=== PATIENT | female | born 1955 | race Asian ===

== ENCOUNTER 2023-05-22 12:54 | Emergency (ER) | payer MEDICAID ==
[~2023-05-22] VITALS: Ht 157.5 cm; Wt 52.2 kg
[2023-05-22 13:06] VITALS: BP_SYST 110; PULSE 82; RESP 16; TEMP 97.4; O2SAT 98
[2023-05-22 14:01] LABS: BASOPHILS % (AUTO) 0.3 % (0.0-2.0); EOSINOPHILS % (AUTO) 0.5 % (0.0-4.0); HEMATOCRIT 35.4 % (36-48); HEMOGLOBIN 11.5 g/dL (12.0-16.0); LYMPHOCYTES # (AUTO) 1.7 K/uL (1.0-5.5); LYMPHOCYTES % (AUTO) 17.5 % (20.5-51.5); MEAN CORPUSCULAR HEMOGLOBIN 19 pg (27-31); MEAN CORPUSCULAR HGB CONC 33 % (32-36); MEAN CORPUSCULAR VOLUME 58 fL (79.0-98.0); MONOCYTES # (AUTO) 0.7 K/uL (0.0-1.0); MONOCYTES % (AUTO) 7.4 % (1.7-9.3); NEUTROPHILS # (AUTO) 7.4 K/uL (1.8-7.7); NEUTROPHILS % (AUTO) 74.3 % (40.0-70.0); PLATELET COUNT (AUTO) 294 K/uL (130-430); RED BLOOD CELL COUNT(AUTO) 6.13 MIL/uL (4.2-6.2); RED CELL DISTRIBUTION WIDTH 13.7 % (9.0-15.0)
[2023-05-22 14:11] LABS: ANION GAP 9 (5-15); CARBON DIOXIDE 30 mmol/L (23-29); CHLORIDE 95 mmol/L (98-107); CREATININE 1.34 mg/dL (0.55-1.30); GFR AFRICAN AMERICAN 51 mL/min (>90); GLUCOSE 103 mg/dL (74-106); POTASSIUM 3.7 mmol/L (3.5-5.1); SODIUM SERUM 134 mmol/L (136-145); UREA NITROGEN, BLOOD 31 mg/dL (8-21)
[2023-05-22 14:12] LABS: GFR NON AFRICAN-AMERICAN 42 mL/min (>90)
[2023-05-22 14:24] LABS: ALANINE AMINOTRANSFERASE 7 U/L (12-78); ALBUMIN 3.5 g/dL (3.4-4.8); ASPARTATE AMINOTRANSFERASE 10 U/L (10-37); BILIRUBIN,DIRECT 0.3 mg/dL (0.0-0.3); CREATINE KINASE, TOTAL 31 U/L (26-192); FREE T4 (FREE THYROXINE) 1.5 ng/dL (0.6-1.6); LIPASE 76 U/L (16-77); THYROID STIMULATING HORMONE 0.94 uIu/mL (0.34-4.82); TOTAL BILIRUBIN 0.8 mg/dL (0.0-1.0)
[2023-05-22 14:29] LABS: OVALOCYTES FEW; TARGET CELLS FEW; TEAR DROP CELLS FEW
[2023-05-22] MEDS: NACL 0.9% 1,000 ML IV ONE (14:51)
[2023-05-22] MEDS ORDERED: HYDR25TA4 PO (14:54)
[2023-05-22] MEDS ORDERED: METF-380 PO (14:54)
[2023-05-22] MEDS ORDERED: LOSA-412 PO (14:54)
[2023-05-22] MEDS ORDERED: ASA81 PO (14:54)
[2023-05-22] MEDS ORDERED: NOR10 PO (14:54)
[2023-05-22] MEDS ORDERED: LIP80 PO (14:54)
[2023-05-22 17:08] LABS: BILIRUBIN,URINE NEGATIVE (NEGATIVE); BLOOD, URINE 1+ (NEGATIVE); CLARITY/URINE CLEAR (CLEAR); COLOR,URINE YELLOW (YELLOW); GLUCOSE,URINE NEGATIVE (NEGATIVE); KETONES,URINE NEGATIVE (NEGATIVE); LEUKOCYTE ESTERASE ,URINE 3+ (NEGATIVE); NITRITE, URINE NEGATIVE (NEGATIVE); PH,URINE 7.5 (5.0-8.0); PROTEIN URINE 2+ (NEGATIVE); UROBILINOGEN,URINE 0.2 (0.2-1.0)
[2023-05-22 17:17] LABS: BACTERIA,URINE MANY /HPF (None Seen); MUCUS,URINE None Seen /LPF (None Seen); URINE AMORPHOUS PHOSPHATES 3+ /HPF (None Seen); WBC,URINE >100 /HPF (0-3)
[2023-05-22] MEDS ORDERED: cefTRIAXone 1 GM VIAL ONE (17:30)
[2023-05-22] MEDS: cefTRIAXone 1 GM in D5W 50 ML IV ONE (17:31)
[2023-05-22 21:23] VITALS: BP_SYST 112; PULSE 81; RESP 18; TEMP 97.8; O2SAT 96
== END 2023-05-22 21:10 | disposition short-term general hospital (02) ==
LOC: SED 12:54
DX: N39.0 Urinary tract infection, site not specified (principal); R63.8 Other symptoms and signs concerning food and fluid intake; Z79.899 Other long term (current) drug therapy; Z20.822 Contact with and (suspected) exposure to COVID-19
CPT/HCPCS: 99285; 74176; 96365; 71045; 96361; 87426; 80076; 80048; 81001; 82550; 83880; 84439; 83690; 84443; 85025; 87040; 87086; 84484; 36415; 93005; 81000; 81015; J0696; J7030; 87186